=== PATIENT | male | born 1975 | race Caucasian/White ===

== ENCOUNTER 2023-03-11 11:40 | Emergency (ER) | payer OTHER ==
[2023-03-11] MEDS ORDERED: SMZ./TMP. 800/160 MG TABLET ONE (12:35)
[2023-03-11] MEDS ORDERED: CEPHALEXIN 250 MG CAP ONE (12:35)
--- NOTE | 2023-03-11 13:03 | ER ---
Nurse's Notes [facility] Name: Gilles Macias Age: 47 yrs Sex: Male : 1975 Arrival Date: 03/11/2023 Time: 11:40 Bed 12 Private MD: Diagnosis: Cellulitis of right lower limb Presentation: 03/11 12:28 Chief complaint: Patient states: right knee pain/swelling/redness x 5 days. Coronavirus iw screen: At this time, the client does not indicate any symptoms associated with coronavirus-19. Ebola Screen: Patient negative for fever greater than or equal to 101.5 degrees Fahrenheit, and additional compatible Ebola Virus Disease symptoms Patient denies exposure to infectious person. Patient denies travel to an Ebola-affected area in the 21 days before illness onset. No symptoms or risks identified at this time. Initial Sepsis Screen: Does the patient meet any 2 criteria? No. Patient's initial sepsis screen is negative. Does the patient have a suspected source of infection? No. Patient's initial sepsis screen is negative. Risk Assessment: Do you want to hurt yourself or someone else? Patient reports no desire to harm self or others. Onset of symptoms was March 06, 2023. 12:28 Method Of Arrival: Ambulatory iw 12:28 Acuity: MAG 3 iw Historical: - Allergies: 12:29 No Known Allergies; iw Vital Signs: 12:30 BP 124 / 68; Pulse 73; Resp 16; Temp 97.3; Pulse Ox 97% on R/A; Weight 92.99 kg; Height iw 5 ft. 10 in. ; Pain 1/10; 12:30 Body Mass Index 29.41 (92.99 kg, 177.8 cm) iw 12:30 Pain Scale: Adult iw ED Course: 11:47 Patient arrived in ED. mg5 11:48 [facility] kb 11:48 Gera Marley MD is Attending Physician. kb 12:23 Maude Bruno, CORTEZ is Primary Nurse. iw 12:28 Triage completed. iw Administered Medications: 12:29 Drug: Cephalexin PO 500 mg Route: PO; iw 12:45 Follow up: Response: No adverse reaction iw 12:29 Drug: Trimethoprim-Sulfamethoxazole PO (160 mg-800 mg (DS) 1 tablet Route: PO; iw 12:45 Follow up: Response: No adverse reaction iw Outcome: 13:03 Discharge ordered by . kb 13:15 Patient left the ED. iw Signatures: Bri Alvares FNP-C FNP-Ckb Williams, Irene, RN RN Maricel Hidalgo mg5
--- NOTE | 2023-03-11 13:03 | EDPHYS ---
Physician Documentation [facility] Name: Gilles Macias Age: 47 yrs Sex: Male : 1975 Arrival Date: 03/11/2023 Time: 11:40 Bed 12 Private MD: ED Physician Gera Marley HPI: 03/11 13:12 This 47 yrs old Male presents to ER via Ambulatory with complaints of Knee Injury - kb Swelling. 13:12 The patient presents with cellulitis of the right knee. Description: erythematous, hot, kb swollen. Onset: The symptoms/episode began/occurred 5 day(s) ago. Possible cause(s): unknown. Associated signs and symptoms: Pertinent positives: erythema, fever, swelling. Modifying factors: the symptoms are alleviated by nothing, the symptoms are aggravated by pressure. Severity of symptoms: At their worst the symptoms were moderate, in the emergency department the symptoms are unchanged. The patient has not experienced similar symptoms in the past. The patient has not recently seen a physician. Pt reports he knelt down on a rock on Sunday. Developed redness, swelling and warmth to right knee later that day. Reports he has had fever and chills as well. States the swelling and redness have gotten better since it started. Has been taking some amoxicillin that he had at home. Historical: - Allergies: 12:29 No Known Allergies; iw ROS: 13:12 Constitutional: Negative for fever, chills, and weight loss. kb 13:12 Skin: Positive for erythema, swelling, of the right knee. 13:12 All other systems are negative. Exam: 13:15 Constitutional: This is a well developed, well nourished patient who is awake, alert, kb and in no acute distress. Head/Face: Normocephalic, atraumatic. ENT: Moist Mucous membranes Cardiovascular: Regular rate and rhythm with a normal S1 and S2. No gallops, murmurs, or rubs. No pulse deficits. Respiratory: Respirations even and unlabored. No increased work of breathing. Talking in full sentences Abdomen/GI: Soft, non-tender. No distention MS/ Extremity: Pulses equal, no cyanosis. Neurovascular intact. Full, normal range of motion. Neuro: Awake and alert, GCS 15, oriented to person, place, time, and situation. Moves all extremities. Normal gait. 13:15 Skin: cellulitis, that is moderate, on the right knee. Vital Signs: 12:30 BP 124 / 68; Pulse 73; Resp 16; Temp 97.3; Pulse Ox 97% on R/A; Weight 92.99 kg; Height iw 5 ft. 10 in. ; Pain 1/10; 12:30 Body Mass Index 29.41 (92.99 kg, 177.8 cm) iw 12:30 Pain Scale: Adult iw MDM: 12:12 Patient medically screened. kb 13:15 Differential diagnosis: abscess, allergic reaction, cellulitis, insect bite, septic kb joint. Data reviewed: vital signs, nurses notes. Test considered but Not performed: Labs: cbc, bmp considered but pt is nontoxic in appearance, afebrile and symptoms are improving. Labs would not change course of treatment. Counseling: I had a detailed discussion with the patient and/or guardian regarding: the historical points, exam findings, and any diagnostic results supporting the discharge/admit diagnosis, the need for outpatient follow up, a family practitioner, to return to the emergency department if symptoms worsen or persist or if there are any questions or concerns that arise at home. ED course: Pt has full ROM of knee without difficulty or pain. . 03/11 13:07 Order name: Glucose, Ancillary Testing; Complete Time: 13:12 EDMS 03/11 12:13 Order name: Blood Glucose Level; Complete Time: 13:05 kb Administered Medications: 12:29 Drug: Cephalexin PO 500 mg Route: PO; iw 12:45 Follow up: Response: No adverse reaction iw 12:29 Drug: Trimethoprim-Sulfamethoxazole PO (160 mg-800 mg (DS) 1 tablet Route: PO; iw 12:45 Follow up: Response: No adverse reaction iw Disposition: 18:56 Co-signature as Attending Physician, Gera Marley MD I reviewed the patient's care rt provided by the Advanced Practice Provider and agree with the diagnosis and treatment plan. Disposition Summary: 03/11/23 13:03 Discharge Ordered Location: Home kb Condition: Stable kb Diagnosis - Cellulitis of right lower limb kb Followup: kb - With: Emergency Department - When: As needed - Reason: Worsening of condition Followup: kb - With: Private Physician - When: 2 - 3 days - Reason: Recheck today's complaints, Continuance of care, Re-evaluation by your physician Discharge Instructions: - Discharge Summary Sheet kb - Cellulitis, Adult, [id number] kb Forms: - Medication Reconciliation Form kb - Thank You Letter kb - Antibiotic Education kb - Prescription Opioid Use kb - Patient Portal Instructions kb Prescriptions: - Cephalexin 500 mg Oral Capsule - take 1 capsule by ORAL route every 8 hours for 10 days; 30 capsule; Refills: 0, kb Product Selection Permitted - Bactrim DS 800-160 mg Oral Tablet - take 1 tablet by ORAL route every 12 hours for 10 days; 20 tablet; Refills: 0, kb Product Selection Permitted Signatures: Bri Alvares FNP-C FNP-Ckb Williams, Irene RN RN iw Gera Marley MD MD rt
[2023-03-11 13:24] VITALS: BP 124/68; TEMP 97.3; O2SAT 97
== END 2023-03-11 13:15 | disposition home or self-care (01) ==
LOC: ER 11:40
DX: L03.115 Cellulitis of right lower limb (principal)
CPT/HCPCS: 82947; 99282

== ENCOUNTER 2023-10-15 07:26 | Day surgery (SDC) | payer OTHER ==
[2023-10-11 16:08] LABS: Absolute Basophils 0.1 K/uL (0-0.5); Absolute Eosinophils 0.2 K/uL (0-0.5); Absolute Lymphocytes (CBC) 2.5 K/uL (0.7-4.9); Basophils % 0.6 % (0-1.3); Eosinophils % 2.4 % (0-4.4); Hematocrit 38.4 % (39.6-49.0); Lymphocytes % 27.6 % (15.3-44.8); MPV 7.4 fL (7.6-11.3); Platelets 389 thou/uL (152-406); RBC Red Blood Cell Count 4.27 M/uL (4.33-5.43)
[2023-10-11 16:21] LABS: Anion Gap 6.7 mEq/L (5.0-15.0); Potassium 3.7 mEq/L (3.5-5.1)
--- NOTE | 2023-10-11 22:19 | RAD REPORT ---
EXAM DESCRIPTION: RAD - Chest Pa And Lat (2 Views) - 10/11/2023 3:54 pm CLINICAL HISTORY: Pre op pending hernia repair. Diabetes COMPARISON: No comparisons TECHNIQUE: PA and lateral views of the chest were obtained. FINDINGS: The lungs are clear. Heart size is normal and central vasculature is within normal limits. No pleural effusion or pneumothorax seen. No acute bony finding noted. IMPRESSION: No acute cardiopulmonary process.
[2023-10-15] MEDS ORDERED: Ringers Lactate 1,000 ML IV ONE (07:38)
[2023-10-15] MEDS ORDERED: ONDANSETRON 4 MG/2 ML VIAL ONE (08:00)
[2023-10-15] MEDS ORDERED: dexAMETHasone 10 MG/ML VIAL ONE (08:00)
[2023-10-15] MEDS ORDERED: GLYCOPYRROLATE 0.2 MG/ML SYR ONE ×2 (08:00→09:32)
[2023-10-15] MEDS ORDERED: NEOSTIGMINE 1 MG/ML -10 ML VIAL ONE (08:00)
[2023-10-15] MEDS ORDERED: propofoL 200 MG/20 ML VIAL IV ONE (08:00)
[2023-10-15] MEDS ORDERED: ROCURONIUM 50 MG/5 ML VIAL IV ONE (08:00)
[2023-10-15] MEDS ORDERED: KETOROLAC 30 MG/ML INJ ONE (08:00)
[2023-10-15] MEDS ORDERED: LIDOCAINE 2% MPF 5 ML VIAL ONE (08:00)
[2023-10-15] MEDS ORDERED: MIDAZOLAM HCL 2 MG/2 ML INJ ONE ×2 (08:01→09:44)
[2023-10-15] MEDS ORDERED: FENTANYL CITR 100 MCG/2 ML ONE ×2 (08:01→09:04)
[2023-10-15] MEDS: CEFAZOLIN SODIUM 1 GM/VIAL ONE (08:52)
[2023-10-15] MEDS ORDERED: Mastisol Adhesive Liq ONE (09:35)
--- NOTE | 2023-10-15 10:05 | P.BOP ---
Preoperative diagnosis: Tender Left inguinal hernia Postoperative diagnosis: same Primary procedure: Laparoscopic repair of Tender Left inguinal hernia with mesh Estimated blood loss: <10cc Specimen: sac Findings: direct and indirect inguinal hernia Anesthesia: General Complications: None Implants: 3D large mesh Transferred to: Recovery Room Condition: Good
[2023-10-15 10:23] VITALS: O2SAT 100
[2023-10-15 11:00] VITALS: BP 117/60; TEMP 96.5
--- NOTE | 2023-10-16 12:42 | OP ---
Date of Procedure: 10/15/2023 Surgeon: Deshawn Dillon MD Preoperative Diagnosis: Tender left inguinal hernia. Postoperative Diagnosis: Tender left inguinal hernia. Procedure: Laparoscopic repair of tender left inguinal hernia with mesh. Estimated Blood Loss: Less than 10 cc. Specimen: Hernia sac from the direct area. Finding: Direct and indirect inguinal hernias. Anesthesia: General plus local. Implants: 3D mesh, large. Indications: This is a case of a 48-year-old patient who came to us with a tender left inguinal elif ia. The benefits, alternatives, and risks of laparoscopic versus open repair with mesh fully explain ed, which included, but not limited to, infection, bleeding, damage to adjacent structures, anesthesi a complication, recurrence, ID, and even . He also understands this may not relieve any symptom s, he might need more than one surgical intervention. He understood, signed a consent. Description Of Procedure: The patient was brought to the operating room, placed in supine position. Anesthesia was done without complication. A time-out was called. Abdomen and genitalia were preppe d and draped in the usual sterile fashion. An incision was made in the infraumbilical region. Incis ion was carried down until we found an anterior rectus sheath on the left side and the muscle that wa s opened and the muscle retracted laterally to expose the posterior rectus sheath. The extraperitone al space was gently developed with the help of blunt dissection. Then, after that, a Spacemaker troc ar was placed in that region, on it with the camera in, we proceeded to inflate the balloon. After t hat, the balloon was deflated and removed. The area was insufflated and with the camera in place, we proceeded to place a 5 mm trocar just above the pubis symphysis and another one long-term between the first and the second one. The preperitoneal space was further developed by exposing the inferior epi gastric vessels keeping them anterior. The Andreas's ligament was dissected laterally to the junction with the iliac veins and the dissection continued inferiorly to the iliopubic tract avoiding damage to the femoral branch of the genitofemoral nerve and lateral femoral cutaneous nerve. The cord struc tures were carefully skeletonized. We had this patient on a hernia sac, direct. The hernia sac was reduced and the sac was ligated with the help of Endo clips. We also noticed the patient to have an indirect hernia. So the spermatic cord structures were skeletonized and we reduced that hernia sac i nto the peritoneal cavity making sure we preserved the spermatic cord structures. After that, I proc eeded to place a mesh sheath in the working space to cover direct, indirect spaces. The mesh was sec ured in place with SorbaFix fixation device lateral and superior to the iliopubic tract and inferior and medial to the Anderas's ligament. After ensuring adequate hemostasis, we proceeded to stop the in sufflation, allowed the air to escape while we were looking at the area directly. The anterior rectu s sheath was then closed using #1 Vicryl and the skin was closed in a subcuticular fashion with 3-0 c hromic. Sponge counts and instrument counts were correct. At the end of the case, testicles were in the scrotum. Patient sent to Recovery in stable condition. YVONNE/RANDOLPH Voice ID: [id number] Report ID: [id number]
--- NOTE | 2023-10-16 12:42 | DS ---
Date of Discharge: 10/15/2023 Diagnosis: Tender left inguinal hernia. Procedure: Laparoscopic repair of tender left inguinal hernia with mesh. Disposition: Home. Condition: Stable. Activity: As tolerated. No heavy lifting. Plan: Follow up in my office in 1 week. Call for appointment at [phone]. Keep area dry for 48 patel rs, then may shower. Keep Steri-Strips intact. Cold compress to the left inguinal region for 24 patel rs. YVONNE/RANDOLPH Voice ID: [id number] Report ID: [id number]
== END 2023-10-15 11:10 | disposition home or self-care (01) ==
LOC: OR 07:26
PROVIDERS: ATTEND Surgery
PROC: 0YU64JZ Supplement Left Inguinal Region with Synthetic Substitute, Percutaneous Endoscopic Approach (ICD-10-PCS; principal; 2023-10-15 08:30)
DX: K40.90 Unilateral inguinal hernia, without obstruction or gangrene, not specified as recurrent (principal); F17.210 Nicotine dependence, cigarettes, uncomplicated; R73.03 Prediabetes; R01.1 Cardiac murmur, unspecified
CPT/HCPCS: 93005; 85025; 80048; 36415; 88302; 71046; 49505; J2704; J2710; J2001; J2250 ×2; J3010 ×2; J1100; J2405; J7120; J0690